=== PATIENT | female | born 1995 | race Two or more races ===

== ENCOUNTER → 2018-11-22 | Emergency (ER) | payer OTHER ==
[~2018-11-22] VITALS: Ht 152.4 cm; Wt 52.2 kg
== END | disposition left against medical advice (07) ==
LOC: ER 19:25
DX: Z53.20 Procedure and treatment not carried out because of patient's decision for unspecified reasons (principal)

== ENCOUNTER 2019-02-21 18:19 | Emergency (ER) | payer OTHER ==
[~2019-02-21] VITALS: Ht 152.4 cm; Wt 54.9 kg
== END 2019-02-21 23:37 | disposition home or self-care (01) ==
LOC: ER 18:19
DX: K52.9 Noninfective gastroenteritis and colitis, unspecified (principal); R50.9 Fever, unspecified

== ENCOUNTER 2021-12-03 16:35 | Emergency (ER) | payer OTHER ==
[~2021-12-03] VITALS: Ht 152.4 cm; Wt 50.8 kg
== END 2021-12-03 18:28 | disposition home or self-care (01) ==
LOC: ER 16:35
DX: N39.0 Urinary tract infection, site not specified (principal)